=== PATIENT | female | born 1995 | race Caucasian/White ===

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

== ENCOUNTER 2017-03-17 06:36 | Emergency (ER) | payer MEDICAID ==
[2017-03-17 07:56] VITALS: BP 124/68
== END 2017-03-17 08:30 | disposition home or self-care (01) ==
LOC: ED 06:36
DX: M54.6 Pain in thoracic spine (principal)
CPT/HCPCS: 72072

== ENCOUNTER 2018-02-01 14:32 | Emergency (ER) | payer OTHER ==
[~2018-02-01] VITALS: Ht 165.1 cm; Wt 58.1 kg
[2018-02-01 15:42] VITALS: BP 133/87
== END 2018-02-01 15:32 | disposition home or self-care (01) ==
LOC: ED 14:32
DX: S51.011A Laceration without foreign body of right elbow, initial encounter (principal); W26.9XXA Contact with unspecified sharp object(s), initial encounter; Y93.89 Activity, other specified; Y92.89 Other specified places as the place of occurrence of the external cause; Y99.8 Other external cause status
CPT/HCPCS: 90715; 99406; J2001

== ENCOUNTER 2018-02-04 22:53 | Emergency (ER) | payer OTHER ==
[~2018-02-04] VITALS: Ht 165.1 cm; Wt 57.8 kg
[2018-02-04 23:07] VITALS: Ht 165.1 cm; Wt 57.8 kg
[2018-02-04 23:50] VITALS: BP 146/77
== END 2018-02-04 23:50 | disposition home or self-care (01) ==
LOC: ED 22:53
DX: S51.011D Laceration without foreign body of right elbow, subsequent encounter (principal); X58.XXXD Exposure to other specified factors, subsequent encounter

== ENCOUNTER 2019-02-13 09:29 | Emergency (ER) | payer BC ==
[~2019-02-13] VITALS: Ht 165.1 cm; Wt 59.9 kg
[2019-02-13 09:33] VITALS: BP 126/61; Ht 165.1 cm; Wt 59.9 kg
== END 2019-02-13 10:45 | disposition home or self-care (01) ==
LOC: ED 09:29
DX: N39.0 Urinary tract infection, site not specified (principal); F17.210 Nicotine dependence, cigarettes, uncomplicated